=== PATIENT | male | born 1945 | race Caucasian/White ===

== ENCOUNTER 2022-06-30 11:36 | Outpatient (REF) | payer OTHER, SELFPAY ==
[2022-06-30 13:26] LABS: MANUAL DIFF FLAG NO
[2022-06-30 14:25] LABS: Basophils Absolute Auto 0.1 X10*3/uL (0.0-0.2); Basophils Percent Auto 0.7 % (0-2); Eosinophils Absolute Auto 0.1 X10*3/uL (0.0-0.4); Hematocrit 42.5 % (42.0-52.0); Imm Gran Abs Auto 0.03 X10*3/uL (0.00-0.03); Imm Gran Pct Auto 0.3 % (0.0-0.4); Lymphocytes Absolute Auto 1.6 X10*3/uL (1.2-4.9); Lymphocytes Percent Auto 17.7 % (20-40); Mean Corpuscular HGB Conc 30.6 g/dl (31.0-36.0); Mean Corpuscular Hemoglobin 23.3 pg (27.0-33.0); Mean Corpuscular Volume 76.2 fL (80.0-98.0); Mean Platelet Volume 9.8 fL (9.4-12.4); Monocytes Absolute Auto 0.5 X10*3/uL (0.1-1.2); Monocytes Percent Auto 5.3 % (2-11); Neutrophils Absolute Auto 6.9 x10*3/uL (2.0-8.3); Platelet Count 325 X10*3/uL (160-400); Red Blood Count 5.58 X10*6/uL (4.60-5.80); Red Cell Distribution Width 16.6 % (11.0-16.0); White Blood Count 9.2 X10*3/uL (4.8-10.8)
[2022-06-30 14:43] LABS: Estimated Average Glucose 134 mg/dL; Hemoglobin A1C 150.9393 umol/L; Hemoglobin A1c % 6.3 %
[2022-06-30 15:13] LABS: Alanine Aminotransferase 19 U/L (0-40); Albumin Level 4.5 g/dL (3.5-5.0); Alkaline Phosphatase 75 U/L (39-117); Anion Gap 10 (12-20); Aspartate Amino Transferase 18 U/L (5-37); Bilirubin Total 0.4 mg/dL (0.0-1.0); Blood Urea Nitrogen 16 mg/dL (9-16); C Reactive Protein 0.22 mg/dL (< or = 0.50); Calcium 9.4 mg/dL (8.4-10.2); Carbon Dioxide 27 mmol/L (22-29); Chloride 105 mmol/L (96-108); Estimated Glomerular Filt Rate > 60; Glucose Random 113 mg/dL (60-115); Potassium 4.3 mmol/L (3.3-5.1); Rheumatoid Factor < 13.0 IU/mL (<15.0); Sodium 138 mmol/L (135-145); Total Protein 7.2 g/dL (6.5-8.0)
[2022-06-30 15:16] LABS: TSH reflex Free T4 0.84 uIU/mL (0.32-4.0)
[2022-06-30 15:23] LABS: Erythrocyte Sedimentation Rate 3 MM/HR (0-15)
[2022-06-30 15:28] LABS: Appearance Urine Clear; Color Urine Yellow; Glucose Urine UA Negative (Negative); Leukocyte Esterase Urine Negative (Negative); Nitrite Urine Negative (Negative); PH 5.5 (5.0-9.0); Specific Gravity - Urine 1.015 (1.005-1.025); Urine Blood Negative (Negative); Urine Ketones Negative (Negative); Urine Protein Negative (Neg-Trace)
[2022-06-30 16:07] LABS: Creatinine Urine 63.66 mg/dL; Total Protein Urine Random < 7 mg/dL (<12)
[2022-06-30 18:40] LABS: Bacteria Urine None Seen (None Seen); Hyaline Casts Urine 0-2 /LPF (0-2); RBC Urine 0-2 /HPF (0-2); Squamous Epithelial Cell Urine 0-2 /HPF (0-2); WBC Urine 0-5 /HPF (0-5)
[2022-07-01 13:54] LABS: Complement C3 54 mg/dL (82-185)
[2022-07-02 09:51] LABS: HBc Num1 0.06 S/CO (0.00-0.79); HBsAGNum1 0.27 S/CO (0.00-0.99); Hepatitis A Antibody IgM 0.21 Index (0-0.79); Hepatitis B Core Antibody Nonreactive (Nonreactive); Hepatitis B Surface Antigen Negative (Negative); ~HepC Num1 0.06 S/CO (0.00-0.79); ~Hepatitis A Antibody IgM Nonreactive (Nonreactive); ~Hepatitis B Surface Antibody NONREACTIVE (Nonreactive); ~Hepatitis C Antibody Nonreactive (Nonreactive)
[2022-07-02 13:08] LABS: Anti DNA DS Antibody <1 IU/mL; Antibody to SS-A Antigen <1.0 NEG AI (<1.0 NEG); Antibody to SS-B Antigen <1.0 NEG AI (<1.0 NEG); Myeloperoxidase Antibody <1.0 AI; Proteinase 3 PR3 Antibodies <1.0 AI; SM/Ribonucleoprotein Ab <1.0 NEG AI (<1.0 NEG); Smith Protein <1.0 NEG AI (<1.0 NEG)
[2022-07-02 13:48] LABS: Anti Nuclear Antibody Screen NEGATIVE (NEGATIVE)
[2022-07-03 05:23] LABS: TS Negative Control Passed; TS Panel A 9; TS Panel B 6; TS Positive Control Passed; TSpotTB Positive (Negative)
[2022-07-03 22:02] LABS: Prot Elec - Albumin 4.4 g/dL (3.8-4.8); Prot Elec - Alpha1 0.3 g/dL (0.2-0.3); Prot Elec - Alpha2 0.8 g/dL (0.5-0.9); Prot Elec - Beta 1 0.5 g/dL (0.4-0.6); Prot Elec - Beta 2 0.3 g/dL (0.2-0.5); Prot Elec - Total Protein 7.2 g/dL (6.1-8.1)
[2022-07-05 16:18] LABS: Cyclic Citrullinated Peptide <16 UNITS
[2022-07-05 17:08] LABS: Angiotensin Converting Enzyme 47.4 U/L (9-67)
[2022-07-06 10:44] LABS: IgA 204 mg/dL (70-320); IgG 1078 mg/dL (600-1540); IgM 60 mg/dL (50-300)
== END 2022-06-30 11:37 | disposition home or self-care (01) ==
LOC: HO.LAB 11:36
PROVIDERS: PCP Family Medicine; Visit Provider Student in an Organized Health Care Education/Training Program
DX: Z11.59 Encounter for screening for other viral diseases (principal); Z11.7 Encounter for testing for latent tuberculosis infection; I77.6 Arteritis, unspecified; R53.83 Other fatigue; M25.541 Pain in joints of right hand; M35.3 Polymyalgia rheumatica
CPT/HCPCS: 36415; 80053; 81001; 82164; 82550; 82784; 83036; 84156; 84165; 84443; 85025; 85652; 86021; 86038; 86039; 86140; 86160; 86200; 86225; 86235; 86334; 86431; 86481; 86704; 86706; 86709; 86803; 87340

== ENCOUNTER → 2022-07-06 11:27 | Outpatient (BNVA) | payer OTHER, SELFPAY | PROVIDERS: PCP Family Medicine; Visit Provider Surgery Vascular Surgery | DX: M31.6 Other giant cell arteritis (principal) ==

== ENCOUNTER 2022-07-12 06:08 | Day surgery (SDC) | payer OTHER, SELFPAY ==
[2022-07-10 11:24] VITALS: BMI 30.2
[2022-07-12 06:34] VITALS: BP 156/81; PULSE 58; RESP 18; TEMP 36.1; O2SAT 99
[2022-07-12 08:22] VITALS: BP 111/74; PULSE 55; RESP 16; TEMP 36.6; O2SAT 98
--- NOTE | 2022-07-12 08:22 | W.PM.OPN ---
Operative Note Operative Note Date of Service: 07/12/22 Narrative: Operative note by [facility] Preoperative diagnosis: Giant cell arteritis Postoperative diagnosis: Same Procedure: Right temporal artery biopsy Surgeon:Lazaro Mccarthy M.D. Technician Automatic: None Anesthesia: Local with sedation performed by Anesthesia Specimens: 1 Drains: None Estimated blood loss: 10 mL Indications: Pleasant 77-year-old gentleman presents for temporal artery biopsy. He had been seen by Rheumatology and was worked up. There was concern of giant cell arteritis. He now presents for operative biopsy The patient has signed the informed consent after reviewing risks, complications, benefits, and alternatives previously discussed with the patient. The patient was given the opportunity to ask any additional questions or voice any concerns. All questions were answered to the patient's satisfaction. Procedure in detail: Patient was brought to the operating room prior to which a time-out was called for patient identification and site verification. Right temporal region just anterior to the was prepped and draped in standard surgical fashion. Cotton ball was placed within the ear canal. We had premarked the temporal artery which we were easily able to palpate. Approximately a 3 cm incision was created over this temporal region. We dissected down through the skin subcu and deep tissue. We were easily able to identify the temporal artery. Proximal and distal locations were ligated with a 3-0 silk tie. Once this was accomplished specimen was removed. Specimen length was at least 2 cm in length. This was sent down for pathology. Once this was accomplished wound was irrigated clean. Deep layer was reapproximated using 2 0 Polysorb. Skin was closed using a running 4-0 Monocryl. Exofin was used as a sterile dressing. Patient tolerated the procedure well. Returned to recovery with stable vitals. This note is constructed using voice recognition software. While every effort has been made to ensure accuracy, underground mine superintendent errors may have been included. Thank you for allowing me to participate in the care of your patient. Yours sincerely, Lazaro Mccarthy MD, FACS, R.P.V.I.
[2022-07-12 08:37] VITALS: BP 103/70; PULSE 56; RESP 16; O2SAT 98
[2022-07-12 08:51] VITALS: BP 117/71; PULSE 57; RESP 16; TEMP 36.8; O2SAT 98
--- NOTE | 2022-07-12 11:41 | MHC.SHP ---
Pre-Procedural Eval Section A Date of Service: 07/12/22 The patient is an INPATIENT: No Changes since office visit: Yes Patient answered all questions The History & Physical has been completed within 30 days and I have reviewed it.: Yes Section B Chief Complaint: Other giant cell arteritis Allergies: Allergies Allergy/AdvReac Type Severity Reaction Status Date / Time No Known Allergies Allergy Verified 07/06/22 11:33 Plan I have reviewed the history and physical and performed a pertinent physical examination on my patient. No changes have occurred unless specified. Time Spent With Patient Time: Total time managing care of this patient today ____ minutes.
--- NOTE | 2022-07-12 17:01 | HO.ANESPROP2 ---
HPI - Anesthesia Eval Consult details Narrative: 77 M for right temporal artery biopsy PMFSH Active Problems Active Problems: All Active Problems (Updated 07/06/22 @ 12:00 by Lazaro Mccarthy MD) Giant cell arteritis (Acute) Joint pain in fingers of right hand (Acute) Vasculitis (Acute) Polymyalgia rheumatica (Acute) Past Medical History Medical History Adenomatous colon polyp BPH (benign prostatic hyperplasia) Hyperlipemia Psoriasis Tobacco use Umbilical hernia Family History Family History Father COPD (chronic obstructive pulmonary disease) Mother CVA (cerebral vascular accident) Family history of problems with anesthesia: No Surgical History Surgical History History of Achilles tendon repair Hx of appendectomy History of Problems with Anesthesia: No Social History Social History Household Members: Spouse Alcohol intake: current Alcohol intake frequency: holidays/special occasions only Alcohol type: wine Patient Tobacco Use Status: Former Tobacco user Current occupational status: retired Meds Allergies Allergy/AdvReac Type Severity Reaction Status Date / Time No Known Allergies Allergy Verified 07/06/22 11:33 Exam Exam Date and Time: July 12, 2022 1701 Height,Weight and Vital Signs: Height 6 ft 2 in Weight 106.594 kg Last Vital Signs Temp 98.2 F 07/12/22 08:51 Pulse 57 07/12/22 08:51 Resp 16 07/12/22 08:51 BP 117/71 07/12/22 08:51 Pulse Ox 98 07/12/22 08:51 O2 Del Method 07/12/22 08:51 O2 Flow Rate 5 07/12/22 08:22 Airway Mallampati Class: III TM Dist: >3cm Neck ROM: Full Loose/Missing/Broken Teeth: Yes Heart: S1,S2 Lungs: b/l breath sounds Assessment and Plan Assessment Anesthesia Assessment: Anesthesia Plan Discussed and Chart Reviewed Final Anesthetic Review Family History of Problems with Anesthesia: No History of Problems with Anesthesia: No NPO: Yes ASA Class: II Final Preanesthetic Review: Meds/Allgs Chart Reviewed, Consent Obtained/Reviewed and Anes Risks/Benef Reviewed Patient Risk: Intermediate Procedure Risk: Intermediate Anesthetic Plan Anesthetic Plan: MAC: Disposition: Standard PACU
== END 2022-07-12 09:25 | disposition home or self-care (01) ==
PROVIDERS: PCP Family Medicine; Visit Provider Surgery Vascular Surgery
PROC: (CPT 37609; principal; 2022-07-12 07:30)
DX: M31.6 Other giant cell arteritis (principal); M35.3 Polymyalgia rheumatica; E78.5 Hyperlipidemia, unspecified; L40.9 Psoriasis, unspecified; Z87.891 Personal history of nicotine dependence
CPT/HCPCS: 37609; 88305; J0690; J1100; J2250; J2405; J2795; J3010

== ENCOUNTER → 2022-07-27 13:28 | Outpatient (BNVA) | payer OTHER, SELFPAY | PROVIDERS: PCP Family Medicine; Visit Provider Student in an Organized Health Care Education/Training Program | DX: Z13.89 Encounter for screening for other disorder (principal) ==

== ENCOUNTER → 2022-10-12 13:32 | Outpatient (BNVA) | payer OTHER, SELFPAY | PROVIDERS: PCP Family Medicine; Visit Provider Student in an Organized Health Care Education/Training Program | DX: Z13.89 Encounter for screening for other disorder (principal) ==

== ENCOUNTER 2023-03-09 15:58 | Outpatient (AMB) | payer OTHER, SELFPAY ==
--- NOTE | 2023-03-09 15:55 | MHC.OFFVIS ---
Intake Vital Signs 03/09/23 16:00 Height 6 ft 2 in Weight 232 lb 9.403 oz BMI 29.9 BP 156/82 H Blood Pressure Location Rt brachial Position Sitting Pulse 51 Pulse Source Pulse Oximeter Temp 97.3 F Temp Source Skin Pulse Oximetry (%) 98 Intake Visit Reasons: PMR Intake Note: Pt seen today for PMR follow up and test results. Last seen 10/12/22. Currently on 2mg prednisone daily, states he feels great. 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 He is on 2 mg of prednisone daily since the beginning of February. Feels well overall. No recurrence of PMR symptoms. Initial history: This is a 77-year-old male with a past medical history of dyslipidemia, BPH, psoriasis who presents for evaluation of PMR. Patient states that starting July of 2021 he started having pain in both cheeks. He was evaluated by ENT and dentist and was told his evaluation was unremarkable. He also states that he had a CT of his sinuses and he was also told it was unremarkable. Patient took Pita on his own which he believes helped his symptoms. Since March patient started having bilateral knee pain and stiffness followed by right shoulder pain followed by bilateral wrist pain and stiffness. He also had recurrent pain in his cheeks, the pain is usually worse at night associated with bilateral eye discomfort but no eye pain or blurry vision. This time Pita isn't helping. He was evaluated by his PCP, labs showed significantly elevated inflammatory markers. and started on prednisone 20 mg for 2 days which significantly helped all his symptoms, this was lowered to 10 mg daily, then patient was tapered down by 1 mg until he was on 6 mg until June 22, at that time he had recurrent joint pain as well as bilateral pain in his cheeks. His dose was increased back to 7 mg which he feels well on. However, he continues to have headaches and bilateral cheek pain at night. Denies any runny nose or sneezing. No history of allergies. He denies jaw or tongue claudication denies arm or leg cramping or claudication. No history of fevers, chills. Complains of mild fatigue. PFSH Medical History Adenomatous colon polyp Psoriasis Hyperlipemia Umbilical hernia BPH (benign prostatic hyperplasia) Tobacco use Surgical History History of Achilles tendon repair Hx of appendectomy Family History Father COPD (chronic obstructive pulmonary disease) Mother CVA (cerebral vascular accident) Social History Household Members: Spouse Alcohol intake: current Alcohol intake frequency: holidays/special occasions only Alcohol type: wine Patient Tobacco Use Status: Former Tobacco user Current occupational status: retired Review of [employer] Denies arthralgias Physical Exam Vital Signs: Last Vital Signs Temp 97.3 F 03/09/23 16:00 Pulse 51 03/09/23 16:00 BP 156/82 H 03/09/23 16:00 Pulse Ox 98 03/09/23 16:00 BMI result Body Mass Index 29.9 Const General: cooperative, healthy appearing and comfortable Nutritional Appearance: overweight Orientation/consciousness: patient oriented x3 Limitations: no limitations HEENT Head: Yes normocephalic and Yes atraumatic Resp Effort & Inspection: normal respiratory effort and able to speak in complete sentences Neuro General: patient oriented x3 Extrem Other: No Active synovitis today Muscle strength 5/5 proximally in all 4 limbs Normal range of motion of both shoulders and hips without pain No active synovitis Assessment & Plan Assessment & Plan (1) Polymyalgia rheumatica: Comment: onset 03/2022 Code(s): M35.3 - Polymyalgia rheumatica Plan: This is a 77-year-old male presents for evaluation of PMR. Symptoms started March 2022 with bilateral knee pain and stiffness followed by right shoulder pain and stiffness followed by bilateral wrist pain. Labs showed elevated inflammatory markers and patient was started on 20 mg of prednisone with dramatic improvement, after 2 days this was rapidly tapered to 10 mg daily and has been slowly taper down to 6 mg daily for which he had recurrent stiffness. Right temporal artery biopsy negative for vasculitis. Ophthalmology eval negative for temporal arteritis. Patient is in remission on prednisone 2 mg daily. Inflammatory markers normal. Continue prednisone 2 mg for 2 more weeks then 1 mg daily for 4 weeks then stop. Follow-up in 4 months. Will order repeat labs if needed next visit (2) Latent tuberculosis by blood test: Code(s): Z22.7 - Latent tuberculosis Plan: No symptoms suggestive of active TB. No need to treat latent TB now as patient is not on significant immune suppression. Plan I spent 15 minutes reviewing patient's chart, evaluating patient, ordering diagnostic workup, counseling patient and documenting in the chart Medications: Changed From prednisone 2 mg PO DAILY To prednisone Take 2 tabs by mouth once daily with breakfast for 2 weeks then 1 tab daily for 4 weeks then stop 58 tabs 0RF Coding Level of Care Code Est Pt Level 3 (60975) Diagnoses Polymyalgia rheumatica M35.3 Latent tuberculosis by blood test Z22.7
[2023-03-09 16:00] VITALS: BP 156/82; PULSE 51; TEMP 36.3; O2SAT 98; BMI 29.9
== END 2023-03-09 16:23 | disposition home or self-care (01) ==
LOC: HO.RHE 15:58
PROVIDERS: PCP Family Medicine; Visit Provider Student in an Organized Health Care Education/Training Program
DX: M35.3 Polymyalgia rheumatica (principal); Z22.7 Latent tuberculosis
CPT/HCPCS: 99213

== ENCOUNTER → 2023-03-09 15:58 | Outpatient (BNVA) | payer OTHER, SELFPAY | PROVIDERS: PCP Family Medicine; Visit Provider Student in an Organized Health Care Education/Training Program ==

== ENCOUNTER 2023-06-02 10:24 | Outpatient (AMB) | payer OTHER, SELFPAY ==
--- NOTE | 2023-06-02 10:29 | MHC.OFFVIS ---
Intake Vital Signs 06/02/23 10:34 Height 6 ft 2 in Weight 237 lb BMI 30.4 BP 100/72 Blood Pressure Location Rt brachial Position Standing Pulse 46 L Pulse Source Pulse Oximeter Temp 97 F Temp Source Skin Pulse Oximetry (%) 98 Oxygen Delivery Method Room Air Intake Visit Reasons: increased pain Intake Note: Patient presents today reporting increased right wrist pain, afua shoulder pain, and afua knee pain. Regulatory Technician Required: No Accompanied by: Self / Same As Patient Allergies No Known Allergies Allergy (Verified 06/02/23 10:30) Medication List - Last Reconciled 06/02/23 by Sina Mccord MD No Known Home Meds HPI HPI Comments History of Present Illness Details 79-year-old male with history of PMR returns for follow-up. Prednisone has been tapered off towards the end of March of 2023. States that for the last month he has been have different joint pain. He has been having some low back pain and numbness. He saw a chiropractor and had significant improvement for about 3 days afterwards. He had 2 more sessions with improvement. A few days ago he developed abrupt onset of left shoulder pain and stiffness. It is now resolving. States that in the morning when he does his yoga he has bilateral palmar wrist pain. States that at night he has been having restless legs and bilateral knee pain. He denies any joint swelling. Denies any fevers. States that in the morning today he was having some headache but no blurry vision. Initial history: This is a 77-year-old male with a past medical history of dyslipidemia, BPH, psoriasis who presents for evaluation of PMR. Patient states that starting July of 2021 he started having pain in both cheeks. He was evaluated by ENT and dentist and was told his evaluation was unremarkable. He also states that he had a CT of his sinuses and he was also told it was unremarkable. Patient took Pita on his own which he believes helped his symptoms. Since March patient started having bilateral knee pain and stiffness followed by right shoulder pain followed by bilateral wrist pain and stiffness. He also had recurrent pain in his cheeks, the pain is usually worse at night associated with bilateral eye discomfort but no eye pain or blurry vision. This time Pita isn't helping. He was evaluated by his PCP, labs showed significantly elevated inflammatory markers. and started on prednisone 20 mg for 2 days which significantly helped all his symptoms, this was lowered to 10 mg daily, then patient was tapered down by 1 mg until he was on 6 mg until June 22, at that time he had recurrent joint pain as well as bilateral pain in his cheeks. His dose was increased back to 7 mg which he feels well on. However, he continues to have headaches and bilateral cheek pain at night. Denies any runny nose or sneezing. No history of allergies. He denies jaw or tongue claudication denies arm or leg cramping or claudication. No history of fevers, chills. Complains of mild fatigue. PFSH Medical History Adenomatous colon polyp Psoriasis Hyperlipemia Umbilical hernia BPH (benign prostatic hyperplasia) Tobacco use Surgical History History of Achilles tendon repair Hx of appendectomy Family History Father COPD (chronic obstructive pulmonary disease) Mother CVA (cerebral vascular accident) Social History Household Members: Spouse Alcohol intake: current Alcohol intake frequency: holidays/special occasions only Alcohol type: wine Patient Tobacco Use Status: Former Tobacco user Current occupational status: retired Review of Systems [facility] [place] Reports back pain, Reports arthralgias, Denies joint swelling and Reports stiffness Physical Exam Vital Signs: Last Vital Signs Temp 97 F 06/02/23 10:34 Pulse 46 L 06/02/23 10:34 BP 100/72 06/02/23 10:34 Pulse Ox 98 06/02/23 10:34 Oxygen Delivery Method Room Air 06/02/23 10:34 BMI result Body Mass Index 47.2 Const General: cooperative, healthy appearing and comfortable Nutritional Appearance: obese morbidly obese Orientation/consciousness: patient oriented x3 Limitations: no limitations HEENT Head: Yes normocephalic and Yes atraumatic Mouth: moist mucous membranes Resp Effort & Inspection: normal respiratory effort and able to speak in complete sentences Auscultation: clear to auscultation bilaterally Cardio Rate: regular rate Rhythm: regular rhythm GI Inspection: No distended Palpation (GI): Soft to palpation and nontender Neuro General: patient oriented x3 Extrem Other: Normal range of motion of neck without pain Mildly Positive empty can test bilaterally R>L Negative speed's test bilaterally Negative infraspinatus test and lift-off test bilaterally Normal range of motion of both wrists without pain No wrist swelling or tenderness bilaterally Left hand 2nd and 5th M CP tenderness with MCP squeeze test No swollen joints in the hands No nail pitting Normal nailfold capillaroscopy Negative straight leg raise test bilaterally Normal range of motion of both knees without pain No ankle swelling or tenderness bilaterally Assessment & Plan Assessment & Plan (1) Polymyalgia rheumatica: Comment: onset 03/2022 PDN tapered off 04/2023 Code(s): M35.3 - Polymyalgia rheumatica Plan: This is a 77-year-old male presents for evaluation of PMR. Symptoms started March 2022 with bilateral knee pain and stiffness followed by right shoulder pain and stiffness followed by bilateral wrist pain. Labs showed elevated inflammatory markers and patient was started on 20 mg of prednisone with dramatic improvement, after 2 days this was rapidly tapered to 10 mg daily and has been slowly tapered down to 6 mg daily for which he had recurrent stiffness. Right temporal artery biopsy negative for vasculitis. Ophthalmology eval negative for temporal arteritis. Prednisone has been tapered down to off 04/2023. For about a month or so patient has been having migratory joint pains affecting his low back, left shoulder, wrists and intermittent knee pain. Upon evaluation today there is no obvious swollen joints. Patient has some features of rotator cuff tendinopathy. I will check his inflammatory markers and check x-rays of involved joints for further evaluation. Follow-up in 1 week (2) Latent tuberculosis by blood test: Code(s): Z22.7 - Latent tuberculosis Plan: No symptoms suggestive of active TB. No need to treat latent TB now as patient is not on immune suppression. Plan I spent 30 minutes reviewing patient's chart, evaluating patient, ordering diagnostic workup, counseling patient and documenting in the chart Orders: Orders Complete Blood Count Auto Diff Today M25.50 - Pain in unspecified joint C Reactive Protein Today M25.50 - Pain in unspecified joint Erythrocyte Sedimentation Rate Today M25.50 - Pain in unspecified joint XR hand wrist RT Today M25.50 - Pain in unspecified joint XR sacroiliac joint min 3V Today M25.50 - Pain in unspecified joint XR lumbar spine 4V min Today M25.50 - Pain in unspecified joint XR shoulder LT min 2V Today M25.50 - Pain in unspecified joint Comprehensive Met. Panel Today M25.50 - Pain in unspecified joint XR hand wrist LT Today M25.50 - Pain in unspecified joint XR shoulder RT min 2V Today M25.50 - Pain in unspecified joint XR knee LT 3V Today M25.50 - Pain in unspecified joint XR knee RT 3V Today M25.50 - Pain in unspecified joint XR knee standing BI Today M25.50 - Pain in unspecified joint Coding Level of Care Code Est Pt Level 4 (44565) Diagnoses Polymyalgia rheumatica M35.3 Latent tuberculosis by blood test Z22.7
[2023-06-02 10:34] VITALS: BP 100/72; PULSE 46; TEMP 36.1; O2SAT 98; BMI 30.4
== END 2023-06-02 11:01 | disposition home or self-care (01) ==
PROVIDERS: PCP Family Medicine; Visit Provider Student in an Organized Health Care Education/Training Program
DX: M35.3 Polymyalgia rheumatica (principal); Z22.7 Latent tuberculosis
CPT/HCPCS: 99214

== ENCOUNTER 2023-06-02 10:24 | Outpatient (REF) | payer MEDICAID, SELFPAY ==
--- NOTE | ~2023-06-02 | XR_ITS ---
EXAMINATION: XR KNEE, RIGHT XR KNEE, LEFT XR SHOULDER, RIGHT XR SHOULDER, LEFT XR HAND AND WRIST, RIGHT XR HAND AND WRIST, LEFT XR LUMBAR SPINE XR SACROILIAC JOINT CLINICAL INFORMATION: Pain COMPARISON: None. TECHNIQUE: 4 views of each hand and wrist, 4 views of each shoulder, standing view of both knees with 3 views of the left knee. Five-view lumbar spine. FINDINGS: Right hand and wrist: There is no evidence of acute fracture or dislocation of the right hand. Patient status post previous healed 5th metacarpal fracture. There is some narrowing of the triscaphe joint of the wrist. There is some mild degenerative spurring about the radiocarpal joint. Other joint spaces generally maintained. No significant erosive changes are appreciated. Sacroiliac joints: There is no evidence of acute fracture or diastasis of the pelvis. Hip joint spaces appear maintained with some collar spurring being seen. There is some prominent calcification about the superior lateral aspect of the right hip joint. There is some sclerosis seen involving the sacroiliac joints bilaterally most significant within the superior anterior one-third involving the true synovial joint. No significant erosive changes are evident. No widening of the sacroiliac joints is appreciated. On the provided imaging it is difficult to tell whether there may be some ankylosis about the most superior SI joints bilaterally without evidence of ankylosis inferiorly. Lumbar spine: No acute fracture, spondylolisthesis, or spondylolysis is identified. The disc spaces are generally maintained. There is some bony bridging present at multiple levels in the lower thoracic and lumbar spine at the T10 and T11, T11-T12, and L3-L4 levels. There is noted to be bilateral facet arthropathy L4 through S1. Left hand and wrist: There is no evidence of acute fracture or dislocation of the left hand. There is mild degenerative narrowing and spurring about the triscaphe joint. There is minimal spurring about the 1st carpometacarpal joint. No significant erosive changes are seen. There is some degenerative spurring about the 5th proximal interphalangeal joint. There is a nondestructive bone island or ossifying fibroma seen involving the 1st distal phalanx. There are 3 bony densities seen ventral to the distal radius and scaphoid which may represent secondary ossification centers or possible sequela of previous trauma and clinical correlation to patient's history is recommended. There does appear to be subchondral cysts involving the ventral distal radius. Left shoulder: There is no evidence of acute fracture or dislocation of the left shoulder. No evidence of calcific tendinitis. The glenohumeral joint appears maintained. There appears to be some mild narrowing of the acromioclavicular joint. There is no widening of the coracoclavicular space. There are some pit erosions seen site of insertion of the supraspinatus tendon on the humeral head. Right shoulder: There is no evidence of acute fracture or dislocation of the right shoulder. There is mild spurring about the glenohumeral joint. No destructive bony lesions identified. No widening of the coracoclavicular space. No significant acromioclavicular joint abnormality appreciated. There are a few pit erosions seen at site of insertion of the supraspinatus tendon on the humeral head. AP standing view of both knees and 3 views of the left knee: AP standing views of both knees demonstrate maintenance of the medial and lateral joint space compartments bilaterally. There is minimal spurring of the medial joint spaces. There is a question of artifact versus chondrocalcinosis about the lateral joint space compartment of the right knee. The patellofemoral joint appears unremarkable. No fracture or effusion is appreciated. Prominent patella spurs site of insertion of the quadriceps tendon is noted. XR/XR sacroiliac joint min 3V IMPRESSION: No evidence to suggest erosive arthritides. Mild degenerative changes as described above. Some sclerosis involving the superior anterior aspect of the sacroiliac joints bilaterally as well as some spurring within the lumbar spine but without erosive change.
[2023-06-02 11:22] LABS: MANUAL DIFF FLAG NO
[2023-06-02 11:58] LABS: Basophils Absolute Auto 0.1 X10*3/uL (0.0-0.2); Basophils Percent Auto 0.6 % (0-2); Eosinophils Absolute Auto 0.3 X10*3/uL (0.0-0.4); Eosinophils Percent Auto 3.8 % (0-4); Hematocrit 42.7 % (42.0-52.0); Hemoglobin 12.7 g/dl (14.0-18.0); Imm Gran Abs Auto 0.01 X10*3/uL (0.00-0.03); Imm Gran Pct Auto 0.1 % (0.0-0.4); Lymphocytes Absolute Auto 2.2 X10*3/uL (1.2-4.9); Lymphocytes Percent Auto 27.2 % (20-40); Mean Corpuscular HGB Conc 29.7 g/dl (31.0-36.0); Mean Corpuscular Hemoglobin 22.6 pg (27.0-33.0); Mean Corpuscular Volume 76.1 fL (80.0-98.0); Mean Platelet Volume 10.2 fL (9.4-12.4); Monocytes Absolute Auto 0.8 X10*3/uL (0.1-1.2); Monocytes Percent Auto 9.4 % (2-11); Neutrophils Absolute Auto 4.8 x10*3/uL (2.0-8.3); Neutrophils Percent Auto 58.9 % (45-73); Platelet Count 290 X10*3/uL (160-400); Red Blood Count 5.61 X10*6/uL (4.60-5.80); Red Cell Distribution Width 15.7 % (11.0-16.0); White Blood Count 8.2 X10*3/uL (4.8-10.8)
[2023-06-02 12:35] LABS: Alanine Aminotransferase 16 U/L (0-40); Albumin Level 4.2 g/dL (3.5-5.0); Alkaline Phosphatase 80 U/L (39-117); Anion Gap 9 (12-20); Aspartate Amino Transferase 20 U/L (5-37); Bilirubin Total 0.4 mg/dL (0.0-1.0); Blood Urea Nitrogen 19 mg/dL (9-16); Carbon Dioxide 26 mmol/L (22-29); Chloride 109 mmol/L (96-108); Estimated Glomerular Filt Rate > 60; Glucose Random 114 mg/dL (60-115); Sodium 140 mmol/L (135-145); Total Protein 7.3 g/dL (6.5-8.0)
[2023-06-02 12:51] LABS: Erythrocyte Sedimentation Rate 4 MM/HR (0-15)
== END 2023-06-02 10:25 | disposition home or self-care (01) ==
LOC: HO.XRAY 10:24
PROVIDERS: PCP Family Medicine; Visit Provider Student in an Organized Health Care Education/Training Program
DX: M31.6 Other giant cell arteritis (principal); M79.10 Myalgia, unspecified site; M35.3 Polymyalgia rheumatica; Z22.7 Latent tuberculosis; M25.561 Pain in right knee; M25.562 Pain in left knee; M25.512 Pain in left shoulder; M25.511 Pain in right shoulder; M54.50 Low back pain, unspecified; M79.641 Pain in right hand; M79.642 Pain in left hand; M25.532 Pain in left wrist; M25.531 Pain in right wrist
CPT/HCPCS: 36415; 72110; 72202; 73030; 73110; 73130; 73562; 73564; 80053; 82550; 85025; 85652; 86140

== ENCOUNTER 2023-06-08 13:44 | Outpatient (AMB) | payer OTHER, SELFPAY ==
--- NOTE | 2023-06-08 13:49 | MHC.OFFVIS ---
Intake Vital Signs 06/08/23 13:54 Height 6 ft 2 in Weight 234 lb 2.095 oz BMI 30.1 BP 136/82 Blood Pressure Location Lt brachial Position Sitting Pulse 67 Pulse Source Pulse Oximeter Temp 97 F Temp Source Skin Pulse Oximetry (%) 99 Oxygen Delivery Method Room Air Intake Visit Reasons: OA Intake Note: Patient presents today for OA follow up. 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 Prednisone has been tapered off towards the end of March of 2023. States that for the last month he has been have different joint pain. He has been having some low back pain and numbness. He saw a chiropractor and had significant improvement for about 3 days afterwards. He had 2 more sessions with improvement. A few days ago he developed abrupt onset of left shoulder pain and stiffness. It is now resolving. States that in the morning when he does his yoga he has bilateral palmar wrist pain. It is intermittent, not every day States that at night he has been having restless legs and bilateral knee pain. States that he was having restless legs symptoms when he was initially diagnosed with PMR it improved with prednisone He denies any joint swelling. Denies any fevers. He states that over the last month he has been having recurrent headaches. Improved with ibuprofen. Initial history: This is a 77-year-old male with a past medical history of dyslipidemia, BPH, psoriasis who presents for evaluation of PMR. Patient states that starting July of 2021 he started having pain in both cheeks. He was evaluated by ENT and dentist and was told his evaluation was unremarkable. He also states that he had a CT of his sinuses and he was also told it was unremarkable. Patient took Pita on his own which he believes helped his symptoms. Since March patient started having bilateral knee pain and stiffness followed by right shoulder pain followed by bilateral wrist pain and stiffness. He also had recurrent pain in his cheeks, the pain is usually worse at night associated with bilateral eye discomfort but no eye pain or blurry vision. This time Pita isn't helping. He was evaluated by his PCP, labs showed significantly elevated inflammatory markers. and started on prednisone 20 mg for 2 days which significantly helped all his symptoms, this was lowered to 10 mg daily, then patient was tapered down by 1 mg until he was on 6 mg until June 22, at that time he had recurrent joint pain as well as bilateral pain in his cheeks. His dose was increased back to 7 mg which he feels well on. However, he continues to have headaches and bilateral cheek pain at night. Denies any runny nose or sneezing. No history of allergies. He denies jaw or tongue claudication denies arm or leg cramping or claudication. No history of fevers, chills. Complains of mild fatigue. PFSH Medical History Polymyalgia rheumatica Adenomatous colon polyp Psoriasis Hyperlipemia Umbilical hernia BPH (benign prostatic hyperplasia) Tobacco use Surgical History History of Achilles tendon repair Hx of appendectomy Family History Father COPD (chronic obstructive pulmonary disease) Mother CVA (cerebral vascular accident) Social History Household Members: Spouse Alcohol intake: current Alcohol intake frequency: holidays/special occasions only Alcohol type: wine Patient Tobacco Use Status: Former Tobacco user Current occupational status: retired Review of Systems Const Reports headache(s) ENT Reports headache(s) Musc Reports back pain, Reports arthralgias, Denies joint swelling and Reports stiffness Neuro Reports headache(s) Physical Exam Vital Signs: Last Vital Signs Temp 97 F 06/08/23 13:54 Pulse 67 06/08/23 13:54 BP 136/82 06/08/23 13:54 Pulse Ox 99 06/08/23 13:54 Oxygen Delivery Method Room Air 06/08/23 13:54 BMI result Body Mass Index 30.1 Const General: cooperative, healthy appearing and comfortable Nutritional Appearance: obese morbidly obese Orientation/consciousness: patient oriented x3 Limitations: no limitations HEENT Head: Yes normocephalic and Yes atraumatic Mouth: moist mucous membranes Resp Effort & Inspection: normal respiratory effort and able to speak in complete sentences Auscultation: clear to auscultation bilaterally Cardio Rate: regular rate Rhythm: regular rhythm GI Inspection: No distended Palpation (GI): Soft to palpation and nontender Neuro General: patient oriented x3 Extrem Other: Normal range of motion of neck without pain Negative rotator cuff provocative maneuvers bilaterally today Negative speed's test bilaterally Normal range of motion of both wrists without pain No wrist swelling or tenderness bilaterally Left hand 2nd and 5th MCP tenderness with MCP squeeze test No swollen joints in the hands Tenderness on palpation of the left common extensor origin on the lateral epicondyle No nail pitting Normal nailfold capillaroscopy Negative straight leg raise test bilaterally Normal range of motion of both knees without pain No ankle swelling or tenderness bilaterally Assessment & Plan Assessment & Plan (1) Seronegative arthritis: Code(s): M13.80 - Other specified arthritis, unspecified site Plan: This is a 78-year-old male history of PMR, (prednisone taper to off 04/2023) who presents for follow-up. Since prednisone was discontinued patient has been having migratory joint pain including shoulders, elbows, hands, recurrent restless legs symptoms (he had restless leg symptoms when initially diagnosed with PMR, improved with prednisone) there is reported history of psoriasis in his chart but patient denies any history of psoriasis, no known family history of an autoimmune rheumatic disease. In picture consistent with a seronegative arthritis. Start prednisone taper at 15 mg daily then remain on 5 mg daily. Discussed risks and benefits of hydroxychloroquine. Start hydroxychloroquine 20 mg Twice daily (2) Long-term use of hydroxychloroquine: Code(s): Z79.899 - Other terminal makeup operator (current) drug therapy (3) Chronic headaches: Code(s): R51.9 - Headache, unspecified; G89.29 - Other chronic pain Qualifiers: Intractability: not intractable Headache type: unspecified Qualified Code(s): R51.9 - Headache, unspecified; G89.29 - Other chronic pain Plan: Advised patient to consider neurology evaluation When patient was initially diagnosed with PMR, he was having headaches, right temporal artery biopsy was done and was negative for giant cell arteritis (4) Latent tuberculosis by blood test: Code(s): Z22.7 - Latent tuberculosis Plan: No symptoms suggestive of active TB. No need to treat latent TB now as patient is not on significant immune suppression. Plan I spent 30 minutes reviewing patient's chart, evaluating patient, placing orders, counseling patient and documenting in the chart Medications: New prednisone Take 3 tabs daily for 2 weeks then 2 tabs daily for 2 weeks then remain on 1 tab daily 100 tabs 1RF hydroxychloroquine 200 mg PO BID 60 tabs 2RF Coding Level of Care Code Est Pt Level 4 (82450) Diagnoses Seronegative arthritis M13.80 Long-term use of hydroxychloroquine Z79.899 Chronic nonintractable headache, unspecified headache type R51.9; G89.29 Intractability: not intractable Headache type: unspecified Latent tuberculosis by blood test Z22.7
[2023-06-08 13:54] VITALS: BP 136/82; PULSE 67; TEMP 36.1; O2SAT 99; BMI 30.1
== END 2023-06-08 14:19 | disposition home or self-care (01) ==
PROVIDERS: PCP Family Medicine; Visit Provider Student in an Organized Health Care Education/Training Program
DX: M13.80 Other specified arthritis, unspecified site (principal); Z79.899 Other long term (current) drug therapy; R51.9 Headache, unspecified; G89.29 Other chronic pain; Z22.7 Latent tuberculosis
CPT/HCPCS: 99214

== ENCOUNTER → 2023-06-08 13:44 | Outpatient (BNVA) | payer OTHER, SELFPAY | PROVIDERS: PCP Family Medicine; Visit Provider Student in an Organized Health Care Education/Training Program ==

== ENCOUNTER 2023-07-11 07:59 | Outpatient (AMB) | payer OTHER, SELFPAY ==
[2023-07-11 08:02] VITALS: BP 104/68; PULSE 63; TEMP 35.9; O2SAT 93; BMI 30.2
--- NOTE | 2023-07-11 08:02 | A.OFFVIS_ITS ---
Intake Vital Signs 07/11/23 08:02 Height 6 ft 2 in Weight 235 lb 0.204 oz BMI 30.2 BP 104/68 Blood Pressure Location Rt brachial Position Sitting Pulse 63 Pulse Source Pulse Oximeter Temp 96.6 F L Temp Source Skin Pulse Oximetry (%) 93 Oxygen Delivery Method Room Air Intake Visit Reasons: RA Intake Note: Pt last seen 06/08/23 presents today for follow up. States he feels splendid, will be going away to [place] next week. Scientific Process Operator Required: No Allergies No Known Allergies Allergy (Verified 07/11/23 08:04) Medication List - Last Reconciled 07/11/23 by Sina Mccord MD hydroxychloroquine 200 mg PO BID prednisone Take 3 tabs daily for 2 weeks then 2 tabs daily for 2 weeks then remain on 1 tab daily HPI HPI Comments History of Present Illness Details 78-year-old male with history of PMR ret urns for follow-up. Patient has started prednisone and hydroxychloroquine as prescribed. Stated that he feels much better overall. The cramping and restless leg syndrome of his legs at night has resolved. He continues to have some morning stiffness of his shoulders that lasts 30-40 minutes. Improved with yoga. Stated that he felt some stiffness , joint pains and headaches when he tapered prednisone from 15 mg to 10 mg and from 10 mg to 5 mg. But overall he feels great. Will be going to friends next week. Can not think of any side effects related to hydroxychloroquine. Initial history: This is a 77-year-old male with a past medical history of dyslipidemia, BPH, psoriasis who presents for evaluation of PMR. Patient states that starting July of 2021 he started having pain in both cheeks. He was evaluated by ENT and dentist and was told his evaluation was unremarkable. He also states that he had a CT of his sinuses and he was also told it was unremarkable. Patient took Pita on his own which he believes helped his symptoms. Since March patient started having bilateral knee pain and stiffness followed by right shoulder pain followed by bilateral wrist pain and stiffness. He also had recurrent pain in his cheeks, the pain is usually worse at night associated with bilateral eye discomfort but no eye pain or blurry vision. This time Pita isn't helping. He was evaluated by his PCP, labs showed significantly elevated inflammatory markers. and started on prednisone 20 mg for 2 days which significantly helped all his symptoms, this was lowered to 10 mg daily, then patient was tapered down by 1 mg until he was on 6 mg until June 22, at that time he had recurrent joint pain as well as bilateral pain in his cheeks. His dose was increased back to 7 mg which he feels well on. However, he continues to have headaches and bilateral cheek pain at night. Denies any runny nose or sneezing. No history of allergies. He denies jaw or tongue claudication denies arm or leg cramping or claudication. No history of fevers, chills. Complains of mild fatigue. PFSH Medical History Polymyalgia rheumatica Adenomatous colon polyp Psoriasis Hyperlipemia Umbilical hernia BPH (benign prostatic hyperplasia) Tobacco use Surgical History History of Achilles tendon repair Hx of appendectomy Family History Father COPD (chronic obstructive pulmonary disease) Mother CVA (cerebral vascular accident) Social History Household Members: Spouse Alcohol intake: current Alcohol intake frequency: holidays/special occasions only Alcohol type: wine Patient Tobacco Use Status: Former Tobacco user Current occupational status: retired Review of Systems [facility] Reports arthralgias and Reports stiffness Physical Exam Vital Signs: Last Vital Signs Temp 96.6 F L 07/11/23 08:02 Pulse 63 07/11/23 08:02 BP 104/68 07/11/23 08:02 Pulse Ox 93 07/11/23 08:02 Oxygen Delivery Method Room Air 07/11/23 08:02 BMI result Body Mass Index 30.2 Const General: cooperative, healthy appearing and comfortable Nutritional Appearance: obese morbidly obese Orientation/consciousness: patient oriented x3 Limitations: no limitations HEENT Head: Yes normocephalic and Yes atraumatic Mouth: moist mucous membranes Resp Effort & Inspection: normal respiratory effort and able to speak in complete sentences Auscultation: clear to auscultation bilaterally Cardio Rate: regular rate Rhythm: regular rhythm GI Inspection: No distended Palpation (GI): Soft to palpation and nontender Neuro General: patient oriented x3 Extrem Other: Normal range of motion of neck without pain Negative rotator cuff provocative maneuvers bilaterally today Negative speed's test bilaterally Normal range of motion of both wrists without pain No wrist swelling or tenderness bilaterally No MCP swelling or tenderness today. Negative MCP squeeze test bilaterally No swollen joints in the hands No nail pitting Normal nailfold capillaroscopy Assessment & Plan Assessment & Plan (1) Seronegative arthritis: Comment: Initially diagnosed with PMR (prednisone tapered to off 04/2023) HCQ 05/2023 Code(s): M13.80 - Other specified arthritis, unspecified site Plan: This is a 78-year-old male with seronegative arthritis who presents for follow- up. Doing well overall on prednisone 5 mg daily and hydroxychloroquine 200 mg Twice daily. Continue prednisone 5 mg daily for 2 more weeks then remain on 2.5 mg daily. Continue with hydroxychloroquine 200 mg Twice daily Labs before next visit in 3 months (2) Long-term use of hydroxychloroquine: Code(s): Z79.899 - Other detention (current) drug therapy Plan: Discussed risk of retinopathy associated with hydroxychloroquine. Patient made an appointment with aegis operations specialist in September (3) Latent tuberculosis by blood test: Code(s): Z22.7 - Latent tuberculosis Plan: No symptoms suggestive of active TB. No need to treat latent TB now as patient is not on significant immune suppression. Plan I spent 25 minutes reviewing patient's chart, evaluating patient, placing orders, counseling patient and documenting in the chart Orders: Orders Complete Blood Count Auto Diff 3 Months M13.80 - Other specified arthritis, unspecified site, Z79.899 - Other detention (current) drug therapy Comprehensive Met. Panel 3 Months M13.80 - Other specified arthritis, unspecified site, Z79.899 - Other detention (current) drug therapy C Reactive Protein 3 Months M13.80 - Other specified arthritis, unspecified site, Z79.899 - Other keno terminal operator (current) drug therapy Erythrocyte Sedimentation Rate 3 Months M13.80 - Other specified arthritis, un specified site, Z79.899 - Other keno terminal operator (current) drug therapy Medications: New prednisone Take 2 tabs daily for 2 weeks then remain on 1 tab daily 75 tabs 0RF Coding Level of Care Code Est Pt Level 4 (21230) Diagnoses Seronegative arthritis M13.80 Long-term use of hydroxychloroquine Z79.899 Latent tuberculosis by blood test Z22.7
== END 2023-07-11 08:31 | disposition home or self-care (01) ==
LOC: HO.RHE 07:59
PROVIDERS: PCP Family Medicine; Visit Provider Student in an Organized Health Care Education/Training Program
DX: M13.80 Other specified arthritis, unspecified site (principal); Z79.899 Other long term (current) drug therapy; Z22.7 Latent tuberculosis
CPT/HCPCS: 99214

== ENCOUNTER → 2023-07-11 07:59 | Outpatient (BNVA) | payer OTHER, SELFPAY | PROVIDERS: PCP Family Medicine; Visit Provider Student in an Organized Health Care Education/Training Program ==

== ENCOUNTER 2023-09-05 08:01 | Outpatient (REF) | payer OTHER, SELFPAY ==
[2023-09-05 08:16] LABS: MANUAL DIFF FLAG NO
[2023-09-05 08:33] LABS: Basophils Absolute Auto 0.1 X10*3/uL (0.0-0.2); Eosinophils Absolute Auto 0.3 X10*3/uL (0.0-0.4); Eosinophils Percent Auto 4.5 % (0-4); Hematocrit 43.3 % (42.0-52.0); Hemoglobin 13.2 g/dl (14.0-18.0); Imm Gran Abs Auto 0.01 X10*3/uL (0.00-0.03); Imm Gran Pct Auto 0.1 % (0.0-0.4); Lymphocytes Percent Auto 41.5 % (20-40); Mean Corpuscular HGB Conc 30.5 g/dl (31.0-36.0); Mean Corpuscular Hemoglobin 23.4 pg (27.0-33.0); Mean Corpuscular Volume 76.9 fL (80.0-98.0); Mean Platelet Volume 10.4 fL (9.4-12.4); Monocytes Absolute Auto 0.6 X10*3/uL (0.1-1.2); Monocytes Percent Auto 8.7 % (2-11); Neutrophils Absolute Auto 3.2 x10*3/uL (2.0-8.3); Neutrophils Percent Auto 44.2 % (45-73); Platelet Count 285 X10*3/uL (160-400); Red Blood Count 5.63 X10*6/uL (4.60-5.80); Red Cell Distribution Width 17.1 % (11.0-16.0); White Blood Count 7.3 X10*3/uL (4.8-10.8)
[2023-09-05 09:02] LABS: Alanine Aminotransferase 17 U/L (0-40); Albumin Level 4.3 g/dL (3.5-5.0); Alkaline Phosphatase 69 U/L (39-117); Anion Gap 12 (12-20); Aspartate Amino Transferase 22 U/L (5-37); Bilirubin Total 0.6 mg/dL (0.0-1.0); Blood Urea Nitrogen 22 mg/dL (9-16); C Reactive Protein < 0.10 mg/dL (< or = 0.50); Calcium 9.2 mg/dL (8.4-10.2); Carbon Dioxide 27 mmol/L (22-29); Chloride 108 mmol/L (96-108); Estimated Glomerular Filt Rate > 60; Glucose Random 90 mg/dL (60-115); Potassium 4.2 mmol/L (3.3-5.1); Sodium 143 mmol/L (135-145); Total Protein 7.4 g/dL (6.5-8.0)
[2023-09-05 09:11] LABS: Erythrocyte Sedimentation Rate 2 MM/HR (0-15)
== END 2023-09-05 08:02 | disposition home or self-care (01) ==
LOC: HO.LAB 08:01
PROVIDERS: Visit Provider Student in an Organized Health Care Education/Training Program
DX: M13.80 Other specified arthritis, unspecified site (principal); Z79.899 Other long term (current) drug therapy
CPT/HCPCS: 36415; 80053; 85025; 85652; 86140

== ENCOUNTER 2023-10-06 07:58 | Outpatient (AMB) | payer OTHER, SELFPAY ==
--- NOTE | 2023-10-06 08:00 | MHC.OFFVIS ---
Intake Vital Signs 10/06/23 08:02 Height 6 ft 2 in Weight 233 lb 0.458 oz BMI 29.9 BP 122/74 Blood Pressure Location Rt brachial Position Sitting Intake Visit Reasons: RA Intake Note: Patient last seen 07/11/23 presents today for follow up and test results. Moving back to [place] in February and will need extra supply of medication Commercial Designer Required: No Accompanied by: Self / Same As Patient Allergies No Known Allergies Allergy (Verified 10/06/23 08:04) Medication List - Last Reconciled 10/06/23 by Sina Mccord MD hydroxychloroquine 200 mg PO BID prednisone 2.5 mg PO DAILY HPI HPI Comments History of Present Illness Details 78-year-old male with seronegative RA returns for follow-up. States that at night he gets bilateral buttock discomfort as well as restlessness of his legs. He also gets some aching of his left upper back. He is currently on hydroxychloroquine 200 mg Twice daily and prednisone 2.5 mg daily. Initial history: This is a 77-year-old male with a past medical history of dyslipidemia, BPH, psoriasis who presents for evaluation of PMR. Patient states that starting July of 2021 he started having pain in both cheeks. He was evaluated by ENT and dentist and was told his evaluation was unremarkable. He also states that he had a CT of his sinuses and he was also told it was unremarkable. Patient took Pita on his own which he believes helped his symptoms. Since March patient started having bilateral knee pain and stiffness followed by right shoulder pain followed by bilateral wrist pain and stiffness. He also had recurrent pain in his cheeks, the pain is usually worse at night associated with bilateral eye discomfort but no eye pain or blurry vision. This time Pita isn't helping. He was evaluated by his PCP, labs showed significantly elevated inflammatory markers. and started on prednisone 20 mg for 2 days which significantly helped all his symptoms, this was lowered to 10 mg daily, then patient was tapered down by 1 mg until he was on 6 mg until June 22, at that time he had recurrent joint pain as well as bilateral pain in his cheeks. His dose was increased back to 7 mg which he feels well on. However, he continues to have headaches and bilateral cheek pain at night. Denies any runny nose or sneezing. No history of allergies. He denies jaw or tongue claudication denies arm or leg cramping or claudication. No history of fevers, chills. Complains of mild fatigue. PFSH Medical History Polymyalgia rheumatica Adenomatous colon polyp Psoriasis Hyperlipemia Umbilical hernia BPH (benign prostatic hyperplasia) Tobacco use Surgical History History of Achilles tendon repair Hx of appendectomy Family History Father COPD (chronic obstructive pulmonary disease) Mother CVA (cerebral vascular accident) Social History Household Members: Spouse Alcohol intake: current Alcohol intake frequency: holidays/special occasions only Alcohol type: wine Patient Tobacco Use Status: Former Tobacco user Current occupational status: retired Review of Systems [facility] [place] Reports arthralgias Physical Exam Vital Signs: Last Vital Signs BP 122/74 10/06/23 08:02 BMI result Body Mass Index 29.9 Const General: cooperative, healthy appearing and comfortable Nutritional Appearance: obese morbidly obese Orientation/consciousness: patient oriented x3 Limitations: no limitations HEENT Head: Yes normocephalic and Yes atraumatic Mouth: moist mucous membranes Resp Effort & Inspection: normal respiratory effort and able to speak in complete sentences Auscultation: clear to auscultation bilaterally Cardio Rate: regular rate Rhythm: regular rhythm GI Inspection: No distended Palpation (GI): Soft to palpation and nontender Neuro General: patient oriented x3 Extrem Other: Normal range of motion of neck without pain Negative rotator cuff provocative maneuvers bilaterally today Negative speed's test bilaterally Normal range of motion of both wrists without pain No wrist swelling or tenderness bilaterally No MCP swelling or tenderness today. Negative MCP squeeze test bilaterally No swollen joints in the hands Negative straight leg raise test bilaterally No buttock tenderness No nail pitting Normal nailfold capillaroscopy Assessment & Plan Assessment & Plan (1) Seronegative arthritis: Comment: Initially diagnosed with PMR (elevated inflammatory markers, prednisone tapered to off 04/2023) Picture gradually evolved into mild seronegative RA HCQ 05/2023 effective Code(s): M13.80 - Other specified arthritis, unspecified site Plan: This is a 78-year-old male with seronegative arthritis who presents for follow-up. Doing very well on prednisone 2.5 mg daily and hydroxychloroquine 200 mg Twice daily Reduce prednisone to 1.25 mg daily for 1 month then stop prednisone Continue with hydroxychloroquine 200 mg Twice daily Labs before next visit in 4 months (2) Long-term use of hydroxychloroquine: Code(s): Z79.899 - Other ad terminal makeup operator (current) drug therapy Plan: Discussed risk of retinopathy associated with hydroxychloroquine. Patient was evaluated by cloud engineer this month. Will request records (3) Latent tuberculosis by blood test: Code(s): Z22.7 - Latent tuberculosis Plan: No symptoms suggestive of active TB. No need to treat latent TB now as patient is not on significant immune suppression. (4) Restless legs: Code(s): G25.81 - Restless legs syndrome Plan: Patient is having symptoms of restless legs. As well as bilateral buttock discomfort. Advised patient to discuss it restless legs with his PCP. There is also a component of anxiety. I believe his low back discomfort might be from mild tendinitis/bursitis versus degenerative disc disease. I suggested PT. Patient was not interested. His symptoms are minimal Plan I spent 45 minutes reviewing patient's chart, evaluating patient, ordering diagnostic workup, counseling patient and documenting in the chart Orders: Orders Erythrocyte Sedimentation Rate Today M13.80 - Other specified arthritis, unspecified site Complete Blood Count Auto Diff Today M13.80 - Other specified arthritis, unspecified site Comprehensive Met. Panel Today M13.80 - Other specified arthritis, unspecified site C Reactive Protein Today M13.80 - Other specified arthritis, unspecified site Coding Level of Care Code Est Pt Level 5 (40255) Diagnoses Seronegative arthritis M13.80 Long-term use of hydroxychloroquine Z79.899 Latent tuberculosis by blood test Z22.7 Restless legs G25.81
[2023-10-06 08:02] VITALS: BP 122/74; BMI 29.9
== END 2023-10-06 08:29 | disposition home or self-care (01) ==
PROVIDERS: PCP Family Medicine; Visit Provider Student in an Organized Health Care Education/Training Program
DX: M13.89 Other specified arthritis, multiple sites (principal); Z79.899 Other long term (current) drug therapy; Z22.7 Latent tuberculosis; G25.81 Restless legs syndrome
CPT/HCPCS: 99215

== ENCOUNTER → 2023-10-06 07:58 | Outpatient (BNVA) | payer OTHER, SELFPAY | PROVIDERS: PCP Family Medicine; Visit Provider Student in an Organized Health Care Education/Training Program ==

== ENCOUNTER 2024-02-01 08:04 | Outpatient (AMB) | payer OTHER, SELFPAY ==
[2024-02-01 08:06] VITALS: BP 122/64; PULSE 68; O2SAT 99; BMI 30.3
--- NOTE | 2024-02-01 08:06 | A.OFFVIS_ITS ---
Vital Signs 02/01/24 08:06 Height 6 ft 2 in Weight 235 lb 10.786 oz BMI 30.3 BP 122/64 Blood Pressure Location Rt brachial Position Sitting Pulse 68 Pulse Source Pulse Oximeter Pulse Oximetry (%) 99 Oxygen Delivery Method Room Air Intake Visit Reasons: RA/CM Intake Note: Patient presents here today for follow up on RA. 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 He is tapered off the prednisone. He is on hydroxychloroquine 200 mg Twice daily. He states that he has no joint complaints whatsoever. He saw a chiropractor and was taught some exercises. He will be moving back to [place] on . He sold his house and moved his furniture to [place]. Initial history: This is a 77-year-old male with a past medical history of dyslipidemia, BPH, psoriasis who presents for evaluation of PMR. Patient states that starting July of 2021 he started having pain in both cheeks. He was evaluated by ENT and dentist and was told his evaluation was unremarkable. He also states that he had a CT of his sinuses and he was also told it was unremarkable. Patient took Pita on his own which he believes helped his symptoms. Since March patient started having bilateral knee pain and stiffness followed by right shoulder pain followed by bilateral wrist pain and stiffness. He also had recurrent pain in his cheeks, the pain is usually worse at night associated with bilateral eye discomfort but no eye pain or blurry vision. This time Pita isn't helping. He was evaluated by his PCP, labs showed significantly elevated inflammatory markers. and started on prednisone 20 mg for 2 days which significantly helped all his symptoms, this was lowered to 10 mg daily, then patient was tapered down by 1 mg until he was on 6 mg until June 22, at that time he had recurrent joint pain as well as bilateral pain in his cheeks. His dose was increased back to 7 mg which he feels well on. However, he continues to have headaches and bilateral cheek pain at night. Denies any runny nose or sneezing. No history of allergies. He denies jaw or tongue claudication denies arm or leg cramping or claudication. No history of fevers, chills. Complains of mild fatigue. PFSH Medical History Polymyalgia rheumatica Adenomatous colon polyp Psoriasis Hyperlipemia Umbilical hernia BPH (benign prostatic hyperplasia) Tobacco use Surgical History History of Achilles tendon repair Hx of appendectomy Family History Father COPD (chronic obstructive pulmonary disease) Mother CVA (cerebral vascular accident) Social History Household Members: Spouse Alcohol intake: current Alcohol intake frequency: holidays/special occasions only Alcohol type: wine Patient Tobacco Use Status: Former Tobacco user Current occupational status: retired Review of Systems [employer] Denies arthralgias, Denies joint swelling, Denies limited range of motion and Denies stiffness Physical Exam Vital Signs: Last Vital Signs Pulse 68 02/01/24 08:06 BP 122/64 02/01/24 08:06 Pulse Ox 99 02/01/24 08:06 Oxygen Delivery Method Room Air 02/01/24 08:06 BMI result Body Mass Index 30.3 Const General: cooperative, healthy appearing and comfortable Nutritional Appearance: obese morbidly obese Orientation/consciousness: patient oriented x3 Limitations: no limitations HEENT Head: Yes normocephalic and Yes atraumatic Mouth: moist mucous membranes Resp Effort & Inspection: normal respiratory effort and able to speak in complete sentences Cardio Rate: regular rate Rhythm: regular rhythm GI Inspection: No distended Palpation (GI): Soft to palpation and nontender Neuro General: patient oriented x3 Extrem Other: Normal range of motion of neck without pain Negative rotator cuff provocative maneuvers bilaterally today Negative speed's test bilaterally Normal range of motion of both wrists without pain No wrist swelling or tenderness bilaterally No MCP swelling or tenderness today. Negative MCP squeeze test bilaterally No swollen joints in the hands Negative straight leg raise test bilaterally No buttock tenderness No nail pitting Normal nailfold capillaroscopy Assessment & Plan Assessment & Plan (1) Seronegative arthritis: Comment: Initially diagnosed with PMR (elevated inflammatory markers, prednisone tapered to off 04/2023) Picture gradually evolved into mild seronegative RA HCQ 05/2023 effective Code(s): M13.80 - Other specified arthritis, unspecified site Category: Medical Plan: This is a 78-year-old male with seronegative arthritis who presents for follow- up. Doing very well on hydroxychloroquine 200 mg Twice daily. Prednisone has been completed tapered off Patient is moving back to [facility] on . Continue hydroxychloroquine. May reduce it to 200 mg once daily. Establish care with sign out clerk in [facility] Follow-up as needed if he returns back to the [place] (2) Long-term use of hydroxychloroquine: Code(s): Z79.899 - Other technician terminal and repeater (current) drug therapy Category: Medical Plan: Follow-up regularly with grain wafer machine operator (3) Latent tuberculosis by blood test: Code(s): Z22.7 - Latent tuberculosis Category: Medical Plan: No symptoms suggestive of active TB. No need to treat latent TB now as patient is not on significant immune suppression. (4) Restless legs: Code(s): G25.81 - Restless legs syndrome Category: Medical Plan: Recently started on medication by his PCP Plan I spent 25 minutes reviewing patient's chart, evaluating patient, counseling patient and documenting in the chart Medications: Refilled hydroxychloroquine 200 mg PO BID 180 tabs 1RF Coding Level of Care Code Est Pt Level 4 (82165) Diagnoses Seronegative arthritis M13.80 Long-term use of hydroxychloroquine Z79.899 Latent tuberculosis by blood test Z22.7 Restless legs G25.81
== END 2024-02-01 08:50 | disposition home or self-care (01) ==
PROVIDERS: PCP Family Medicine; Referring Provider Family Medicine; Visit Provider Student in an Organized Health Care Education/Training Program
DX: M13.80 Other specified arthritis, unspecified site (principal); Z79.899 Other long term (current) drug therapy; Z22.7 Latent tuberculosis; G25.81 Restless legs syndrome
CPT/HCPCS: 99214

== ENCOUNTER → 2024-02-01 08:04 | Outpatient (BNVA) | payer OTHER, SELFPAY | PROVIDERS: PCP Family Medicine; Visit Provider Student in an Organized Health Care Education/Training Program ==